=== PATIENT | male | born 1985 | race Caucasian/White ===

== ENCOUNTER 2018-02-24 02:29 | Emergency (ER) | payer SELFPAY ==
[~2018-02-24] VITALS: Ht 175.3 cm; Wt 94.0 kg
[2018-02-24 02:40] VITALS: BP 161/102
== END 2018-02-24 02:59 | disposition home or self-care (01) ==
LOC: EMS 02:30
DX: S00.83XA Contusion of other part of head, initial encounter (principal); W20.8XXA Other cause of strike by thrown, projected or falling object, initial encounter; Y93.89 Activity, other specified; Y92.89 Other specified places as the place of occurrence of the external cause; Y99.8 Other external cause status
CPT/HCPCS: 99283